=== PATIENT | male | born 1980 | race Caucasian/White ===

== ENCOUNTER 2021-06-26 23:56 | Emergency (ER) | payer OTHER, MEDICAID ==
[~2021-06-26] VITALS: Ht 172.7 cm; Wt 70.0 kg
[2021-06-27] MEDS ORDERED: ASPIRIN 325MG EC TABLET PO ONE (00:45)
[2021-06-27] MEDS ORDERED: SODIUM CHLORIDE 0.9% 1,000 ML IV ONE (00:45)
[2021-06-27 00:59] LABS: BASOPHILS % 0.7 % (0.0-2.0); EOSINOPHILS % 0.7 % (0.0-5.0); HEMATOCRIT. 46.8 % (42.0-52.0); HEMOGLOBIN. 15.9 g/dL (14.0-18.0); LYMPHOCYTES % 13.5 % (20.0-50.0); MEAN CORPUSCULAR HEMOGLOBIN 30.9 pg (28.0-32.0); MEAN CORPUSCULAR VOLUME 91.3 fL (80.0-94.0); MEAN PLATELET VOLUME 9.4 fl (7.4-10.4); MONOCYTES % 6.3 % (2.0-8.0); NEUTROPHILS % 78.8 % (40.0-76.0); PLATELET 381 x1000/uL (130-400); RED BLOOD CELL COUNT 5.13 mill/uL (4.7-6.1); RED CELL DISTRIBUTION WIDTH 13.9 % (11.6-14.6)
[2021-06-27 01:06] LABS: CHLORIDE 111 mEq/L (98-107)
[2021-06-27 01:10] LABS: ETHANOL BLOOD < 10 mg/dL
[2021-06-27 01:37] LABS: INR 1.1; PARTIAL THROMBOPLASTIN TIME 25.4 sec (23.4-31.0); PROTHROMBIN TIME 11.4 sec (9.6-11.0)
[2021-06-27] MEDS ORDERED: FUROSEMIDE 100MG/10ML VIAL IVP NR (02:45)
[2021-06-27 04:54] LABS: *AMPHETAMINES SCREEN URINE NEGATIVE (NEGATIVE); *BARBITURATES SCREEN URINE NEGATIVE (NEGATIVE)
[2021-06-27 04:55] LABS: *BENZODIAZEPINES SCREEN URINE NEGATIVE (NEGATIVE); *COCAINE SCREEN URINE NEGATIVE (NEGATIVE); CANNABINOID URINE SCREEN PRESUMTIVE POSITIVE (NEGATIVE); METHADONE URINE SCREEN NEGATIVE (NEGATIVE); OPIATES URINE SCREEN NEGATIVE (NEGATIVE); PHENCYCLIDINE URINE SCREEN NEGATIVE (NEGATIVE)
[2021-06-27] MEDS ORDERED: IOHEXOL-350 100 ML BOTTLE ONE (07:00)
[2021-06-27 08:42] VITALS: BP 129/51
== END 2021-06-27 08:45 | disposition short-term general hospital (02) ==
LOC: ER 23:56 → CANBEDREQ 06-27 08:22 → ER 06-27 08:45
DX: R06.02 Shortness of breath (principal); U07.1 COVID-19; F17.210 Nicotine dependence, cigarettes, uncomplicated; Z86.16 Personal history of COVID-19
CPT/HCPCS: 36415; 71045; 71275; 80053; 80305; 80320; 83690; 83880; 84484; 85025; 85610; 85730; 93005; 96361; 96374; 99285; J1940; J7030; Q9967; G0480

== ENCOUNTER 2021-07-11 02:01 | Emergency (ER) | payer OTHER, MEDICAID ==
[~2021-07-11] VITALS: Ht 170.2 cm; Wt 90.0 kg
[2021-07-11] MEDS ORDERED: ASPIRIN 81MG TABLET PO ONE (02:30)
[2021-07-11 03:13] LABS: BASOPHILS % 3.1 % (0.0-2.0); EOSINOPHILS % 6.1 % (0.0-5.0); HEMATOCRIT. 43.7 % (42.0-52.0); LYMPHOCYTES % 27.5 % (20.0-50.0); MEAN CORPUSCULAR HEMOGLOBIN 31.2 pg (28.0-32.0); MEAN CORPUSCULAR VOLUME 90.8 fL (80.0-94.0); MEAN PLATELET VOLUME 8.9 fl (7.4-10.4); MONOCYTES % 7.3 % (2.0-8.0); PLATELET 348 x1000/uL (130-400); RED BLOOD CELL COUNT 4.81 mill/uL (4.7-6.1); RED CELL DISTRIBUTION WIDTH 13.8 % (11.6-14.6)
[2021-07-11 03:19] LABS: CHLORIDE 110 mEq/L (98-107)
[2021-07-11 04:30] VITALS: BP 109/84
== END 2021-07-11 04:32 | disposition home or self-care (01) ==
LOC: ER 02:01
DX: G89.29 Other chronic pain (principal); F41.9 Anxiety disorder, unspecified; I50.9 Heart failure, unspecified; R94.6 Abnormal results of thyroid function studies; Z86.19 Personal history of other infectious and parasitic diseases
CPT/HCPCS: 36415; 80053; 83880; 84484; 85025; 93005; 99284; Z7610

== ENCOUNTER 2021-07-22 22:42 | Emergency (ER) | payer OTHER ==
[~2021-07-22] VITALS: Ht 170.2 cm; Wt 79.0 kg
[2021-07-23 00:01] LABS: CHLORIDE 111 mEq/L (98-107)
[2021-07-23 00:02] LABS: BASOPHILS % 1.2 % (0.0-2.0); EOSINOPHILS % 7.6 % (0.0-5.0); HEMATOCRIT. 41.4 % (42.0-52.0); HEMOGLOBIN. 14.6 g/dL (14.0-18.0); LYMPHOCYTES % 26.6 % (20.0-50.0); MEAN CORPUSCULAR HEMOGLOBIN 31.3 pg (28.0-32.0); MEAN CORPUSCULAR VOLUME 89.1 fL (80.0-94.0); MEAN PLATELET VOLUME 9.9 fl (7.4-10.4); MONOCYTES % 6.6 % (2.0-8.0); PLATELET 336 x1000/uL (130-400); RED BLOOD CELL COUNT 4.65 mill/uL (4.7-6.1); RED CELL DISTRIBUTION WIDTH 13.9 % (11.6-14.6)
[2021-07-23 04:30] VITALS: BP 114/80
== END 2021-07-23 05:09 | disposition home or self-care (01) ==
LOC: ER 22:42
DX: R07.89 Other chest pain (principal); R00.2 Palpitations; F41.9 Anxiety disorder, unspecified; I50.9 Heart failure, unspecified; F12.10 Cannabis abuse, uncomplicated; Z86.19 Personal history of other infectious and parasitic diseases
CPT/HCPCS: 36415; 71045; 80053; 83880; 84484; 85025; 99285

== ENCOUNTER 2021-11-05 23:33 | Emergency (ER) | payer MEDICAID, OTHER ==
[~2021-11-05] VITALS: Ht 172.7 cm; Wt 91.0 kg
[2021-11-06 01:00] LABS: BASOPHILS % 0.9 % (0.0-2.0); EOSINOPHILS % 4.5 % (0.0-5.0); HEMATOCRIT. 44.2 % (42.0-52.0); HEMOGLOBIN. 15.2 g/dL (14.0-18.0); LYMPHOCYTES % 20.7 % (20.0-50.0); MEAN CORPUSCULAR HEMOGLOBIN 30.4 pg (28.0-32.0); MEAN CORPUSCULAR VOLUME 88.4 fL (80.0-94.0); MEAN PLATELET VOLUME 8.2 fl (7.4-10.4); MONOCYTES % 7.9 % (2.0-8.0); PLATELET 353 x1000/uL (130-400)
[2021-11-06 01:05] LABS: CHLORIDE 104 mEq/L (98-107)
[2021-11-06 02:55] VITALS: BP 122/83
== END 2021-11-06 03:12 | disposition home or self-care (01) ==
LOC: ER 23:46
DX: R07.9 Chest pain, unspecified (principal); R00.2 Palpitations; F41.9 Anxiety disorder, unspecified; I50.9 Heart failure, unspecified; R06.02 Shortness of breath
CPT/HCPCS: 36415; 71045; 80053; 83880; 84484; 85025; 99284